=== PATIENT | male | born 1995 | race Hispanic/Latino ===

== ENCOUNTER 2019-08-29 16:38 | Emergency (ER) | payer BC ==
[~2019-08-29] VITALS: Ht 167.6 cm; Wt 93.9 kg
[2019-08-29] MEDS ORDERED: CYCLOBENZAPRINE10 MG PO (19:09)
[2019-08-29] MEDS ORDERED: MEDROL4 M1 PO (19:29)
== END 2019-08-29 19:44 | disposition home or self-care (01) ==
LOC: ED 16:38
DX: M54.41 Lumbago with sciatica, right side (principal)
CPT/HCPCS: 99283